=== PATIENT | male | born 1980 | race Caucasian/White ===

== ENCOUNTER 2021-11-27 09:04 | Emergency (ER) | payer BC, SELFPAY ==
[2021-11-27] VITALS (7 sets, daily range): BP systolic 131–154; BP diastolic 91–98; PULSE 68–99; RESP 15–23; TEMP 36.4; O2SAT 97–98; BMI 23.1
--- NOTE | 2021-11-27 08:56 | ECG_ITS ---
APPROVED REPORT Exam: Resting ECG HR:88 bpm ECG Measurements Heart Rate 88 AXES VT 124 P 74 QRSd 88 QRS 73 QT 332 T 64 QTc 378 Conclusion SINUS RHYTHM Biatrial abnormality LVH NONSPECIFIC ST & T-WAVE ABNORMALITY ABNORMAL ECG UNCONFIRMED REPORT Electronically signed by : Ravinder Campbell MD 11/27/2021 21:44:12
--- NOTE | 2021-11-27 09:07 | [facility].EDCP ---
ED Disposition Clinical Impression: Chest pain Qualifiers: Chest pain type: unspecified Qualified Code(s): R07.9 - Chest pain, unspecified Disposition: Home, Self-Care Condition on Discharge: Fair Instructions: DI for Atypical Chest Pain Additional Instructions: Please take [id number] Tylenol and/or Motrin for your pain. Follow-up with your primary care physician in about 1 week even if you feel well. Return to the emergency department immediately if you feel worse in any way. I strongly recommend that you stop smoking. Referrals: Ricky Holder II, MD [Primary Care Provider] - Forms: Work/School Release - Critical Care Critical Care Time: No Attestation: On , the high probability of a clinically significant, sudden or life threatening deterioration of the following system(s) required my full and direct attention, intervention and personal management. The time I documented below is in addition to time spent performing reported procedures but includes the following listed in this critical care notation. Medical Decision Making - Dequan Inquiry Pt receiving controlled substance: No Vital Signs: 11/27/21 09:04 11/27/21 09:30 11/27/21 09:35 Temperature 97.6 F Temperature Source Oral Pulse Rate 83 80 Pulse Rate [Left Radial] 99 H Respiratory Rate 15 23 22 Blood Pressure 142/95 H 139/93 H Blood Pressure [Right Arm] 154/98 H Blood Pressure Mean 113 Blood Pressure Mean [Right Arm] 116 Blood Pressure Source Blood Pressure Source [Right Arm] Automatic Cuff Blood Pressure Position Blood Pressure Position [Right Arm] Sitting 02 Sat by Pulse Oximetry 98 98 98 Oxygen Delivery Method Room Air 11/27/21 09:45 11/27/21 09:55 11/27/21 10:15 Temperature Temperature Source Pulse Rate 79 79 68 Pulse Rate [Left Radial] Respiratory Rate 19 19 17 Blood Pressure 134/95 H 134/91 H 131/91 H Blood Pressure [Right Arm] Blood Pressure Mean 111 105 104 Blood Pressure Mean [Right Arm] Blood Pressure Source Blood Pressure Source [Right Arm] Blood Pressure Position Blood Pressure Position [Right Arm] 02 Sat by Pulse Oximetry 97 97 98 Oxygen Delivery Method 11/27/21 10:41 Temperature 97.6 F Temperature Source Pulse Rate 76 Pulse Rate [Left Radial] Respiratory Rate 21 Blood Pressure 138/94 H Blood Pressure [Right Arm] Blood Pressure Mean Blood Pressure Mean [Right Arm] Blood Pressure Source Automatic Cuff Blood Pressure Source [Right Arm] Blood Pressure Position Sitting Blood Pressure Position [Right Arm] 02 Sat by Pulse Oximetry Oxygen Delivery Method Room Air - Lab Data Lab results reviewed: Yes: I reviewed the patient's lab results. Lab Results 11/27/21 09:10: WBC 8.7, RBC 4.95, Hgb 15.8, Hct 49.6, MCV 100.2 H, MCH 32.0 H, MCHC 31.9, RDW 14.1, Plt Count 299, MPV 8.3, Neut % (Auto) 64.3, Lymph % (Auto) 21.0, Schuyler % (Auto) 10.2 H, Eos % (Auto) 2.9, Baso % (Auto) 1.6, Neut # (Auto) 5.6, Lymph # (Auto) 1.8, Schuyler # (Auto) 0.9, Eos # (Auto) 0.3, Baso # (Auto) 0.1 11/27/21 09:10: PT 10.5, INR 0.92, APTT 31.7 H 11/27/21 09:10: Sodium 136, Potassium 3.9, Chloride 103, Carbon Dioxide 27, Anion Gap 9.9, BUN 7 L, Creatinine 0.80, Estimated Creat Clear 135, Estimated GFR 106, Est GFR ( Amer) 128, Glucose 118 H, Calcium 9.4, Total Bilirubin 0.7, AST 26, ALT 19, Alkaline Phosphatase 138 H, Troponin I < 0.01, NT-Pro-B Natriuret Pep 62.7, Total Protein 7.5, Albumin 4.4, Globulin 3.1, Albumin/Globulin Ratio 1.4 Result diagrams: 11/27/21 09:10 11/27/21 09:10 Orders (Tests/Meds): ED MEDICATIONS Discontinued Medications Generic Name Dose Route Start Last Admin Trade Name Freq PRN Reason Stop Dose Admin Ketorolac Tromethamine 30 mg 11/27/21 09:11 11/27/21 09:21 Ketorolac 30mg/Ml Vial IV 11/27/21 09:12 30 mg ONCE ONE Administration ORDERS Category Date Time Status XR chest portable Stat Exams 11/27/21 09:10 Taken E
--- NOTE | 2021-11-27 09:10 | XR_ITS ---
FINAL REPORT TECHNIQUE: Single view chest CLINICAL HISTORY: Precordial chest pain FINDINGS: A single view of the chest was obtained. The heart and mediastinum are within normal limits. The lungs are clear. There is no pneumothorax. Osseous structures are unremarkable. IMPRESSION: No acute cardiopulmonary process. Reviewed, Interpreted and Dictated by Deshawn Rea III, MD Transcribed by Hortensia Cota Authenticated and . [facility]
[2021-11-27 09:28] LABS: Basophils # 0.1 K/mm3 (0-0.2); Basophils % 1.6 % (0.1-2.0); Eosinophils # 0.3 K/mm3 (0.0-0.4); Eosinophils % 2.9 % (0.1-12.0); Hematocrit 49.6 % (42.0-52.0); Hemoglobin 15.8 g/dL (14.1-18.0); Lymphocytes # 1.8 K/mm3 (0.7-4.5); Mean Corpuscular HGB Conc 31.9 g/dL (31.8-35.4); Mean Corpuscular Volume 100.2 fl (80-94); Mean Platelet Volume 8.3 fl (7.4-10.4); Monocytes # 0.9 K/mm3 (0.1-1.0); Monocytes % 10.2 % (1.7-9.3); Neutrophils # 5.6 K/mm3 (1.8-7.8); Neutrophils % 64.3 % (37.0-80.0); Platelet Count 299 K/mm3 (142-424); Red Blood Count 4.95 M/mm3 (4.60-6.20); Red Cell Distribution Width 14.1 % (11.5-17.5); White Blood Count 8.7 K/mm3 (4.8-10.8)
[2021-11-27 09:36] LABS: Chloride 103 mmol/L (98-107); Potassium 3.9 mmoL/L (3.5-5.1); Sodium 136 mmol/L (136-145)
[2021-11-27 09:38] LABS: Blood Urea Nitrogen 7 mg/dl (9-20); Creatinine Clearance Estimated 135 mL/min (50-200); Estimated Glomerular Filt Rate 106 ml/min (>60); GFR (African American) 128 ML/MIN (>60)
[2021-11-27 09:39] LABS: Alanine Aminotransferase 19 U/L (12-78); Albumin Level 4.4 g/dl (3.5-5.0); Albumin/Globulin Ratio 1.4 (1.1-1.8); Alkaline Phosphatase 138 U/L (38-126); Anion Gap 9.9 mEq/L (5-15); Aspartate Amino Transferase 26 U/L (17-59); Bilirubin,Total 0.7 mg/dl (0.2-1.3); Calcium 9.4 mg/dl (8.4-10.2); Carbon Dioxide 27 mmol/L (22.0-30.0); Globulin 3.1 g/dL (1.3-3.2); Glucose 118 mg/dl (74-100); Total Protein,Serum 7.5 g/dl (6.3-8.2)
[2021-11-27 09:42] LABS: Activated Partial Thrombo Time 31.7 seconds (22.8-30.6); INR 0.92 (0.9-1.1); Prothrombin Time 10.5 seconds (10.1-12.5)
[2021-11-27 09:48] LABS: NT Pro Brain Natriuretic Pep. 62.7 pg/mL (0-125)
[2021-11-27 09:52] LABS: Troponin I < 0.01 ng/ml (0.00-0.034)
== END 2021-11-27 10:42 | disposition home or self-care (01) ==
PROVIDERS: Emergency Provider Emergency Medicine; PCP Family Medicine
DX: R07.9 Chest pain, unspecified (principal); M25.512 Pain in left shoulder
CPT/HCPCS: 71045; 80053; 83880; 84484; 85025; 85610; 85730; 93005; 96374; 99284